=== PATIENT | female | born 2000 | race Caucasian/White ===

== ENCOUNTER 2020-07-30 10:10 | Emergency (ER) | payer OTHER ==
[~2020-07-30] VITALS: Ht 154.9 cm; Wt 96.0 kg
[2020-07-30 10:30] VITALS: BP 119/80
--- NOTE | 2020-07-30 10:43 | PHYS DOC ---
Past Medical History Past Medical History: Asthma, Bipolar, Other Additional Past Medical Histor: ADHD (RUT FRANCIS APRN) Past Surgical History: Tonsillectomy Additional Past Surgical Histo: L WRIST SX (RUT FRANCIS APRN) Smoking Status: Never Smoker Alcohol Use: None Drug Use: None (RUT FRANCIS APRN) General Adult EDM: Chief Complaint: SORE THROAT HPI: HPI: Patient is a 20 year old female who presents to the ED today complaining of sore throat, enlarged tonsils, symptoms began yesterday. Patient also reports subjective fevers. Denies any coughing or congestion. (RUT FRANCIS APRN) Review of Systems: Review of Systems: Constitutional: Reports subjective fevers Eyes: Denies change in visual acuity. [] HENT: Reports sore throat, enlarged tonsils Denies nasal congestion Respiratory: Denies cough or shortness of breath. [] Cardiovascular: Denies chest pain or edema. [] GI: Denies abdominal pain, nausea, vomiting, bloody stools or diarrhea. [] : Denies dysuria. [] Musculoskeletal: Denies back pain or joint pain. [] Integument: Denies rash. [] Neurologic: Denies headache, focal weakness or sensory changes. [] Psychiatric: Denies depression or anxiety. [] (RUT FRANCIS APRN) Heart Score: Risk Factors: Risk Factors: DM, Current or recent (<one month) smoker, HTN, HLP, family history of CAD, obesity. Risk Scores: Score 0 - 3: 2.5% MACE over next 6 weeks - Discharge Home Score 4 - 6: 20.3% MACE over next 6 weeks - Admit for Clinical Observation Score 7 - 10: 72.7% MACE over next 6 weeks - Early Invasive Strategies (RUT FRANCIS APRN) Allergies: Allergies: Allergies Coded Allergies Type Severity Reaction Last Updated Verified No Known Drug Allergies 01/03/15 No (RUT FRANCIS APRN) Physical Exam: PE: Constitutional: Well developed, well nourished, no acute distress, non-toxic appearance. [] HENT: Normocephalic, atraumatic, bilateral external ears normal, oropharynx moist, no oral exudates, nose normal. [] +2 right anterior cervical adenopathy Eyes: PERRLA, EOMI, conjunctiva normal, no discharge. [] Neck: Normal range of motion, no tenderness, supple, no stridor. [] Cardiovascular:Heart rate regular rhythm, no murmur [] Lungs & Thorax: Bilateral breath sounds clear to auscultation [] Abdomen: Bowel sounds normal, soft, no tenderness, no masses, no pulsatile masses. [] Skin: Warm, dry, no erythema, no rash. [] Back: No tenderness, no CVA tenderness. [] Extremities: No tenderness, no cyanosis, no clubbing, ROM intact, no edema. [] Neurologic: Alert and oriented X 3, normal motor function, normal sensory function, no focal deficits noted. [] Psychologic: Affect normal, judgement normal, mood normal. [] (RUT FRANCIS APRN) EKG: EKG: [] (RUT FRANCIS APRN) Radiology/Procedures: Radiology/Procedures: [] (RUT FRANCIS APRN) Course & Med Decision Making: Course & Med Decision Making Pertinent Labs and Imaging studies reviewed. (See chart for details) This is a 20-year-old female patient presenting to the ED today with sore throat since yesterday. Positive rapid strep. Discharged on prednisone and amoxicillin. Saltwater gargles recommended. Tylenol/Motrin for pain or fever. Follow-up with PCP in 1 to 2 weeks. Instructed to return to the ED at any point symptoms worsen. (RUT FRANCIS APRN) Dragon Disclaimer: [place] Disclaimer: This electronic medical record was generated, in whole or in part, using a voice recognition dictation system. (RUT FRANCIS APRN) Departure Departure Impression: Primary Impression: Acute streptococcal pharyngitis Additional Impression: Fever Qualified Codes: R50.9 - Fever, unspecified Disposition: 01 DC HOME SELF CARE/HOMELESS Condition: STABLE Referrals: MAKAYLA HAINES (PCP) follow up next week Patient Instructions: Fever, Adult, Igcg-pd-Dvep, Strep Infections Additional Instructions: You are positive for strep infection. Take the prescribed antibiotics until completed. Use salt water gargles as needed, take Tylenol/Motrin for pain or fever. Complete the prednisone. Come back to the ED at any point symptoms worsen. Scripts Amoxicillin (AMOXICILLIN) 875 Mg Tablet 1 TAB PO BID, #20 TAB Prov: RUT FRANCIS APRN 07/30/20 Prednisone (PREDNISONE) 50 Mg Tablet 1 TAB PO DAILY, #5 TAB Prov: RUT FRANCIS APRN 07/30/20 Attending Signature Attending Signature I have reviewed the PA/[employer]'s note and plan of care. I was available for consultation as needed during the patient's visit in the emergency department. I agree with the clinical impression, plan, and disposition. (DERICK BABCOCK DO) RUT FRANCIS APRN Jul 30, 2020 10:43 DERICK BABCOCK DO Jul 30, 2020 18:52
[2020-07-30] MEDS ORDERED: ACETAMINOPHEN 500 MG TABLET PO ONE (10:45)
[2020-07-30] MEDS ORDERED: predniSONE 10 MG TABLET PO ONE (10:45)
[2020-07-30] MEDS ORDERED: AMOX875T PO (11:35)
[2020-07-30] MEDS ORDERED: PRED50TA PO (11:35)
--- NOTE | 2020-08-01 10:58 | NUR ---
IP: Informed pt of negative COVID test. Pt verbalized understanding.
== END 2020-07-30 12:17 | disposition home or self-care (01) ==
LOC: ER 10:10
DX: J02.0 Streptococcal pharyngitis (principal); B95.0 Streptococcus, group A, as the cause of diseases classified elsewhere; Z20.828 Contact with and (suspected) exposure to other viral communicable diseases; J45.909 Unspecified asthma, uncomplicated; F31.9 Bipolar disorder, unspecified
CPT/HCPCS: 87880; 99283; C9803; J7512; U0003